=== PATIENT | female | born 1965 | race African-American/Black ===

== ENCOUNTER 2016-06-08 19:33 | Emergency (ER) | payer MEDICARE, MEDICAID ==
--- NOTE | 2016-06-08 20:09 | ER Document Report ---
ED Medical Screen (RME) - General Chief Complaint: Sore Throat Stated Complaint: SORE THROAT Mode of Arrival: Ambulatory Information source: Patient Notes: 50 y/o F presents to ED c/o sore throat over the last 3 days. States seems to be worse at night. Denies fever or difficulty breathing. I have greeted and performed a rapid initial assessment of this patient. A comprehensive ED assessment and evaluation of the patient, analysis of test results and completion of the medical decision making process will be conducted by additional ED providers. TRAVEL OUTSIDE OF THE [place] IN LAST 30 DAYS: No - Related Data Allergies/Adverse Reactions: No Known Allergies Allergy (Verified 06/08/16 20:08) Past Medical History - Social History Chew tobacco use (# tins/day): No Frequency of alcohol use: None Drug Abuse: None Family history: Arthritis, CAD, CVA, Hyperlipidemia, Hypertension, Malignancy, Thyroid Disfunction - Past Medical History Cardiac Medical History: Reports: Hx Hypercholesterolemia Pulmonary Medical History: Reports: Hx Asthma Renal/ Medical History: Denies: Hx Peritoneal Dialysis Psychiatric Medical History: Reports: Hx Depression - Immunizations Hx Diphtheria, Pertussis, Tetanus Vaccination: Yes Physical Exam - Vital signs Vitals: Temp Pulse Resp BP Pulse Ox 97.9 F 72 16 120/71 100 06/08/16 19:50 06/08/16 19:50 06/08/16 19:50 06/08/16 19:50 06/08/16 19:50 - General General appearance: Appears well, Alert In distress: None - Respiratory Respiratory status: No respiratory distress Course - Vital Signs Vital signs: Temp Pulse Resp BP Pulse Ox 97.9 F 72 16 120/71 100 06/08/16 19:50 06/08/16 19:50 06/08/16 19:50 06/08/16 19:50 06/08/16 19:50
--- NOTE | 2016-06-08 23:46 | ER Document Report ---
ED ENT - General Chief Complaint: Sore Throat Stated Complaint: SORE THROAT Mode of Arrival: Ambulatory Information source: Patient Notes: 50 y/o F presents to ED c/o sore throat over the last 3 days. Pt reports onset of cough and congestion 3 days ago and now states feels like her throat is sore and like there is something stuck in her throat that she can't cough up. States has had no difficulty breathing or swallowing. Denies fever, chest pain, sob, n/ v. TRAVEL OUTSIDE OF THE [place] IN LAST 30 DAYS: No - HPI Patient complains to provider of: Throat problem Onset/Duration: Persistent Quality of pain: Achy Severity: Mild Pain Level: 1 Context: Recent Illness Similar symptoms previously: No Recently seen / treated by doctor: No - Related Data Allergies/Adverse Reactions: No Known Allergies Allergy (Verified 06/08/16 20:08) Past Medical History - General Information source: Patient - Social History Smoking Status: Never Smoker Chew tobacco use (# tins/day): No Frequency of alcohol use: None Drug Abuse: None Lives with: Family Family History: Reviewed & Not Pertinent Patient has suicidal ideation: No Patient has homicidal ideation: No - Past Medical History Cardiac Medical History: Reports: Hx Hypercholesterolemia Pulmonary Medical History: Reports: Hx Asthma Renal/ Medical History: Denies: Hx Peritoneal Dialysis Psychiatric Medical History: Reports: Hx Depression Surgical Hx: Negative - Immunizations Hx Diphtheria, Pertussis, Tetanus Vaccination: Yes Review of Systems - Review of Systems Constitutional: No symptoms reported EENT: See HPI Cardiovascular: No symptoms reported Respiratory: No symptoms reported Gastrointestinal: No symptoms reported Genitourinary: No symptoms reported Female Genitourinary: No symptoms reported Musculoskeletal: No symptoms reported Skin: No symptoms reported Hematologic/Lymphatic: No symptoms reported Neurological/Psychological: No symptoms reported -: Yes All other systems reviewed and negative Physical Exam - Vital signs Vitals: Temp Pulse Resp BP Pulse Ox 97.9 F 72 16 120/71 100 06/08/16 19:50 06/08/16 19:50 06/08/16 19:50 06/08/16 19:50 06/08/16 19:50 - General General appearance: Appears well, Alert In distress: None - HEENT Head: Normocephalic, Atraumatic Eyes: Normal Pupils: PERRL Ears: Normal External canal: Normal Tympanic membrane: Normal Sinus: Normal Nasal: Normal Mouth/Lips: Normal Mucous membranes: Normal, Moist Pharynx: Normal. No: Blood in hypopharynx, Erythema, Exudate, Peritonsillar abscess, Post nasal drainage, Retropharyngeal abscess, Tonsillar hypertrophy, Uvular edema, Potential airway comprom., Other Neck: Normal, Supple. No: Anterior cervical chain, Posterior cervical chain, Lymphadenopathy, Meningismus, Subcutaneous emphysema - Respiratory Respiratory status: No respiratory distress. No: Labored, Tachypnea Chest status: Nontender Breath sounds: Normal - CTAB. No: Decreased air movement, Nonproductive cough, Rhonchi, Wheezing Chest palpation: Normal - Cardiovascular Rhythm: Regular Heart sounds: Normal auscultation Murmur: No Pulses: Normal: Radial Normal capillary refill: Yes - Abdominal Inspection: Normal Distension: No distension Bowel sounds: Normal Tenderness: Nontender Organomegaly: No organomegaly - Back Back: Normal, Nontender Course - Re-evaluation Re-evalutation: 06/08/16 23:48 Patient hemodynamically stable, in no distress, afebrile, nontoxic, and appears well-hydrated. Rapid strep negative, and chest x-ray unremarkable. No suggestion of emergent infectious, ENT, or cardiopulmonary etiology at this time. Patient appears stable for discharge and agrees with home care, follow-up , and ED return precautions. - Vital Signs Vital signs: Temp Pulse Resp BP Pulse Ox 98.1 F 71 18 133/78 H 96 06/08/16 23:59 06/08/16 23:59 06/08/16 23:59 06/08/16 23:59 06/08/16 23:59 - Diagnostic Test Radiology reviewed: Image reviewed, Reports reviewed Discharge - Discharge Clinical Impression: Sore throat Condition: Stable Disposition: HOME, SELF-CARE Additional Instructions: SORE THROAT: Sore throats may be caused by viruses, bacteria, or fungi. Most are due to a virus, and must get better on their own. Bacterial sore throats, particularly those due to "strep," need treatment with antibiotics. If an antibiotic is prescribed, be sure to take the medication for a full 10 days. Failure to take the antibiotic can result in complications such as rheumatic fever. Sometimes, an injection of antibiotics is given instead of pills or liquid. This single "shot" is equal in effectiveness to the oral medication. To relieve symptoms, take acetaminophen for pain. Sip clear liquids frequently, or eat popsicles or ice chips. Anesthetic sprays or lozenges may help. Make sure the air in the room is not too dry. Avoid using decongestants or antihistamines. Call the doctor if there is no improvement in two days, or if you have difficulty breathing, increasing throat pain, high fever, rash, or frequent vomiting. FOLLOW-UP CARE: Drink plenty of fluids. Follow-up with your primary care provider and ENT tomorrow as discussed. Return to the emergency department for any worsening symptoms or concerns. Prescriptions: Phenol/Sodium Phenolate [Chloraseptic Sore Throat [place] 177 ml] 2 sprays MM Q4HP PRN #1 bottle PRN Reason: Referrals: CARRI LIVE MD [Primary Care Provider] - [facility] - Follow up tomorrow
[2016-06-09 00:04] VITALS: BP 133/78
== END 2016-06-08 23:59 | disposition home or self-care (01) ==
LOC: ER 19:33
DX: J02.9 Acute pharyngitis, unspecified (principal); R05 Cough; E78.00 Pure hypercholesterolemia, unspecified; J45.909 Unspecified asthma, uncomplicated
CPT/HCPCS: 71020; 87070; 87077; 87880; 99283

== ENCOUNTER 2017-02-12 16:37 | Emergency (ER) | payer MEDICARE, MEDICAID ==
[2017-02-12 16:45] VITALS: BP 130/81
[2017-02-12] MEDS ORDERED: ONDANSETRON HCL INJ/PF 4 MG/2 ML SDV IV ONE (17:39)
[2017-02-12] MEDS ORDERED: NORMAL SALINE 1000 ML 1,000 ML IV ONE (17:39)
--- NOTE | 2017-02-12 17:40 | ER Document Report ---
ED Medical Screen (RME) - General Chief Complaint: Abdominal Pain Stated Complaint: FEELING WEAK Time Seen by Provider: 02/12/17 17:34 Notes: Patient has a history of anxiety and states that she is currently having weakness and abdominal pain with nausea and constipation. She states she did try to call her psychiatrist today and was unable to get a hold of the psychiatrist. However she states this does not feel like a normal problems she has with her anxiety. TRAVEL OUTSIDE OF THE [place] IN LAST 30 DAYS: No - Related Data Allergies/Adverse Reactions: No Known Allergies Allergy (Verified 06/08/16 20:08) Past Medical History - Social History Frequency of alcohol use: None Drug Abuse: None Family history: Arthritis, CAD, CVA, Hyperlipidemia, Hypertension, Malignancy, Thyroid Disfunction - Past Medical History Cardiac Medical History: Reports: Hx Hypercholesterolemia Pulmonary Medical History: Reports: Hx Asthma Renal/ Medical History: Denies: Hx Peritoneal Dialysis Psychiatric Medical History: Reports: Hx Depression - anxiety - Immunizations Hx Diphtheria, Pertussis, Tetanus Vaccination: Yes Physical Exam - Vital signs Vitals: Temp Pulse Resp BP Pulse Ox 97.7 F 67 14 130/81 H 100 02/12/17 16:40 02/12/17 16:40 02/12/17 16:40 02/12/17 16:40 02/12/17 16:40 Course - Vital Signs Vital signs: Temp Pulse Resp BP Pulse Ox 97.7 F 67 14 130/81 H 100 02/12/17 16:40 02/12/17 16:40 02/12/17 16:40 02/12/17 16:40 02/12/17 16:40
[2017-02-12 18:13] LABS: ABSOLUTE BASOPHILS # (AUTO) 0.1 10^3/uL (0.0-0.2); ABSOLUTE LYMPHOCYTES (AUTO) 1.4 10^3/uL (0.5-4.7); ABSOLUTE MONOCYTES (AUTO) 0.3 10^3/uL (0.1-1.4); ABSOLUTE NEUT (AUTO) 3.5 10^3/uL (1.7-8.2); BASOPHILS % (AUTO) 1.1 % (0-2); EOSINOPHILS % (AUTO) 0.3 % (0-6); HEMATOCRIT 42.2 % (36.0-47.0); HGB HCT DIFFERENCE -0.2; LYMPHOCYTES % (AUTO) 26.9 % (13-45); MEAN CORPUSCULAR HEMOGLOBIN 27.1 pg (27.0-33.4); MEAN CORPUSCULAR HGB CONC 33.2 g/dL (32.0-36.0); MEAN CORPUSCULAR VOLUME 82 fl (80-97); MONOCYTES % (AUTO) 5.9 % (3-13); RED BLOOD COUNT 5.17 10^6/uL (3.72-5.28); RED CELL DISTRIBUTION WIDTH 14.5 % (11.5-14.0); SEGMENTED NEUTROPHILS % (AUTO) 65.8 % (42-78); WHITE BLOOD COUNT 5.3 10^3/uL (4.0-10.5)
[2017-02-12 18:42] LABS: ALANINE AMINOTRANSFERASE 27 U/L (9-52); ALBUMIN 4.4 g/dL (3.5-5.0); ALKALINE PHOSPHATASE 149 U/L (38-126); ANION GAP 11 (5-19); ASPARTATE AMINO TRANSFERASE 31 U/L (14-36); BILIRUBIN,DIRECT 0.3 mg/dL (0.0-0.4); BILIRUBIN,TOTAL 0.7 mg/dL (0.2-1.3); BLOOD UREA NITROGEN 17 mg/dL (7-20); CALCIUM 10.1 mg/dL (8.4-10.2); CARBON DIOXIDE 29 mmol/L (22-30); CHLORIDE 102 mmol/L (98-107); CREATININE RESULT 1.15 mg/dL (0.52-1.25); GLUCOSE 102 mg/dL (75-110); LIPASE 135.6 U/L (23-300); POTASSIUM 4.6 mmol/L (3.6-5.0); SODIUM 142.1 mmol/L (137-145); TOTAL PROTEIN 7.9 g/dL (6.3-8.2)
[2017-02-12 19:58] LABS: BILIRUBIN,URINE NEGATIVE (NEGATIVE); GLUCOSE, URINE NEGATIVE (NEGATIVE); KETONES,URINE NEGATIVE (NEGATIVE); LEUKOCYTE ESTERASE,URINE NEGATIVE (NEGATIVE); NITRITE,URINE NEGATIVE (NEGATIVE); PROTEIN,URINE NEGATIVE (NEGATIVE); URINE SPECIFIC GRAVITY 1.024; UROBILINOGEN,URINE NEGATIVE mg/dL (<2.0)
[2017-02-12 20:08] LABS: APPEARANCE,URINE CLEAR
--- NOTE | 2017-02-12 20:09 | RADIOLOGY REPORT (SQ) ---
EXAM DESCRIPTION: U/S ABDOMEN LIMITED W/O DOP COMPLETED DATE/TIME: 02/12/2017 7:41 pm REASON FOR STUDY: epi pain COMPARISON: None. TECHNIQUE: Dynamic and static grayscale images acquired of the abdomen and recorded on PACS. Additio nal selected color Doppler and spectral images recorded. LIMITATIONS: None. FINDINGS: PANCREAS: The pancreas was incompletely visualized due to overlying bowel gas. The visual ized portions of the pancreatic body and head showed no pancreatic masses. LIVER: No masses. Echotexture normal. There is a small complex cyst in the left lobe of the liver me asuring 1.7 x 2.7 x 1.6 cm LIVER VASCULATURE: Normal blood flow is identified in the portal vein. GALLBLADDER: No stones. Normal wall thickness. No pericholecystic fluid. ULTRASOUND-DETECTED MARR'S SIGN: Negative. INTRAHEPATIC DUCTS AND COMMON DUCT: CBD and intrahepatic ducts normal caliber. No filling defects. INFERIOR VENA CAVA: Normal flow. AORTA: No aneurysm. RIGHT KIDNEY: Normal size. Normal echogenicity. No solid or suspicious masses. No hydronephrosis. No calcifications. PERITONEAL AND RIGHT PLEURAL SPACE: No ascites or effusions. OTHER: No other significant findings. IMPRESSION: No significant intra-abdominal abnormalities were identified. Findings as noted above TECHNICAL DOCUMENTATION: JOB ID: [id number] [email or web address]- All Rights Reserved
[2017-02-12] MEDS ORDERED: FAMOTIDINE 20 MG TABLET PO ONE (20:22)
[2017-02-12] MEDS ORDERED: ONDANSETRON 4 MG TAB.RAPDIS PO ONE (20:23)
--- NOTE | 2017-02-12 20:24 | ER Document Report ---
ED GI/ - General Chief Complaint: Abdominal Injury Stated Complaint: FEELING WEAK Time Seen by Provider: 02/12/17 17:34 Notes: Patient is a 51-year-old female comes emergency department for chief complaint of generally feeling unwell, nausea, feeling like she needs to belch, straining with bowel movement last night. She states she has not really eaten anything today. She states that she thought she might be just anxious, she tried to call her psychiatrist but could not get through to them. She states she is supposed to go to work tonight but she feels too tired to go to work tonight. She denies vomiting, fever, bloody bowel movement, denies any particular areas of abdominal pain, denies chest pain, shortness of breath, headache. TRAVEL OUTSIDE OF THE [place] IN LAST 30 DAYS: No - Related Data Allergies/Adverse Reactions: No Known Allergies Allergy (Verified 06/08/16 20:08) Past Medical History - General Information source: Patient - Social History Smoking Status: Never Smoker Frequency of alcohol use: None Drug Abuse: None Lives with: Family Family History: Reviewed & Not Pertinent Patient has suicidal ideation: No Patient has homicidal ideation: No - Past Medical History Cardiac Medical History: Reports: Hx Hypercholesterolemia Pulmonary Medical History: Reports: Hx Asthma Renal/ Medical History: Denies: Hx Peritoneal Dialysis Psychiatric Medical History: Reports: Hx Depression - anxiety - Immunizations Hx Diphtheria, Pertussis, Tetanus Vaccination: Yes Review of Systems - Review of Systems Constitutional: See HPI EENT: No symptoms reported Cardiovascular: No symptoms reported Respiratory: No symptoms reported Gastrointestinal: See HPI Genitourinary: No symptoms reported Female Genitourinary: No symptoms reported Musculoskeletal: No symptoms reported Skin: No symptoms reported Hematologic/Lymphatic: No symptoms reported Neurological/Psychological: See HPI Physical Exam - Vital signs Vitals: Temp Pulse Resp BP Pulse Ox 97.7 F 67 14 130/81 H 100 02/12/17 16:40 02/12/17 16:40 02/12/17 16:40 02/12/17 16:40 02/12/17 16:40 Interpretation: Normal - General General appearance: Appears well, Alert In distress: None - HEENT Head: Normocephalic, Atraumatic Eyes: Normal Pupils: PERRL - Respiratory Respiratory status: No respiratory distress Chest status: Nontender Breath sounds: Normal. No: Decreased air movement Chest palpation: Normal - Cardiovascular Rhythm: Regular. No: Tachycardia Heart sounds: Normal auscultation, S1 appreciated, S2 appreciated Murmur: No - Abdominal Inspection: Normal Distension: No distension Bowel sounds: Normal Tenderness: Tender - Minimal tenderness in the left upper quadrant, otherwise soft and benign abdomen, no guarding rigidity, or rebound tenderness. Organomegaly: No organomegaly - Back Back: Normal, Nontender - Extremities General upper extremity: Normal inspection, Nontender, Normal color, Normal ROM , Normal temperature General lower extremity: Normal inspection, Nontender, Normal color, Normal ROM , Normal temperature, Normal weight bearing. No: Nikita's sign - Neurological Neuro grossly intact: Yes Cognition: Normal Orientation: AAOx4 [place] Coma Scale Eye Opening: Spontaneous [place] Coma Scale Verbal: Oriented [place] Coma Scale Motor: Obeys Commands [place] Coma Scale Total: 15 Speech: Normal Motor strength normal: LUE, RUE, LLE, RLE Sensory: Normal - Psychological Associated symptoms: Normal affect, Normal mood. No: Aggressive, Agitated, Angry, Anxious - Skin Skin Temperature: Warm Skin Moisture: Dry Skin Color: Normal Course - Re-evaluation Re-evalutation: Patient had calmed down by the time I saw her. She is alert, well-appearing, has mild left upper quadrant tenderness on examination, benign abdomen. Unremarkable vital signs. CBC, chemistry, lipase, urine are all unremarkable. Patient complaining that she feels nauseated and feels like she can eat anything. She denies SI or HI. She denies feeling currently anxious. She was treated with Pepcid and Zofran. Afterwards she was given crackers and fluids. She kept this down without any difficulty. She fell asleep, was easily arousable. Requesting work note. Patient will be discharged with Zofran , Zantac. She also states that she is having hard times a bowel movement. Provided a stool softener. At this time there is no evidence of acute abdomen or other emergency pathology. Recommend follow-up with your primary care, discussed return precautions, patient states understanding and agreement. - Vital Signs Vital signs: Temp Pulse Resp BP Pulse Ox 97.7 F 67 14 130/81 H 100 02/12/17 16:40 02/12/17 16:40 02/12/17 16:40 02/12/17 16:40 02/12/17 16:40 - Laboratory Result Diagrams: 02/12/17 17:57 02/12/17 17:57 Laboratory results interpreted by me: 02/12/17 02/12/17 17:57 17:57 RDW 14.5 H Est GFR (Non-Af Amer) 50 L Alkaline Phosphatase 149 H Discharge - Discharge Clinical Impression: Nausea, Anxiety Abdominal pain Qualifiers: Abdominal location: upper abdomen, unspecified Qualified Code(s): R10.10 - Upper abdominal pain, unspecified Condition: Stable Disposition: HOME, SELF-CARE Additional Instructions: Take the ranitidine prescribed for upper abdominal pain, start with clear fluids and food, avoid NSAIDs, caffeine, alcohol, or spicy food until symptoms improve and resolve. Take Colace stool softener for the next 2-3 days as needed , drink plenty of fluids. Follow-up with primary care for additional management. Return to emergency department for any concerning symptoms including vomiting, fever, severe abdominal pain, black stools, or if something is not right. Prescriptions: Docusate Sodium [Colace 100 mg Capsule] 100 mg PO ASDIR PRN #30 capsule PRN Reason: Promethazine HCl [Phenergan 25 mg Tablet] 1 - 2 tab PO Q6H PRN #15 tablet PRN Reason: Ranitidine HCl [Zantac 150 mg Tablet] 150 mg PO BID #30 tablet Forms: Return to Work Referrals: MIRI LEE PA-C [Primary Care Provider] - Follow up as needed
== END 2017-02-12 21:35 | disposition home or self-care (01) ==
LOC: ER 16:37
DX: R11.0 Nausea (principal); F41.9 Anxiety disorder, unspecified; R10.10 Upper abdominal pain, unspecified; R53.1 Weakness; E78.00 Pure hypercholesterolemia, unspecified
CPT/HCPCS: 99284; 96361; 96374; 36415; 83690; 85025; 80053; 81001; 76705; A9270 ×2; J2405; J7030; S0119

== ENCOUNTER → 2017-03-08 | Outpatient (CLI) | payer MEDICARE, MEDICAID ==
--- NOTE | 2017-03-08 17:46 | RADIOLOGY REPORT (SQ) ---
EXAM DESCRIPTION: ABDOMEN 2 VIEWS COMPLETED DATE/TIME: 03/08/2017 5:36 pm REASON FOR STUDY: IRRITABLE BOWEL SYNDROME WITHOUT DIARRHEA,CONSTIPATION K58.9 IRRITABLE BOWEL SYND RBO WITHOUT DIARRHEA K59.00 CONSTIPATION, UNSPECIFIED COMPARISON: None. NUMBER OF VIEWS: Two views. TECHNIQUE: Supine and erect/decubitus radiographic images of the abdomen acquired. LIMITATIONS: None. FINDINGS: FREE AIR: None. No abnormal gas collections. LUNG BASES: Clear. BOWEL GAS PATTERN: Nonobstructive pattern. No dilated loops or air fluid levels. CALCIFICATIONS: Multiple phleboliths. SOFT TISSUES: No gross mass or suggestion of organomegaly. HARDWARE: None in the abdomen. BONES: No acute fracture. No worrisome bone lesions. OTHER: No other significant finding. IMPRESSION: NO RADIOGRAPHIC EVIDENCE FOR ACUTE ABDOMINAL DISEASE. TECHNICAL DOCUMENTATION: JOB ID: [id number] [employer]- All Rights Reserved
== END ==
LOC: OD 17:05
PROVIDERS: ATTEND Urology
DX: K58.9 Irritable bowel syndrome, unspecified (principal); K59.00 Constipation, unspecified
CPT/HCPCS: 74020